=== PATIENT | female | born 1960 | race Caucasian/White ===

== ENCOUNTER 2023-06-27 05:55 | Observation (INO) ==
[~2023-06-27 05:55] MED LIST: Naloxone 0.4 mg VIAL 0.4 mg/ml 1 ml VIAL IV PRN; Ondansetron 4 mg VIAL 2 MG/ML 2 ml VIAL IV PRN; fentaNYL 100 mcg/2 ml 50 MCG/ML VIAL IV PRN
[2023-06-27] MEDS ORDERED: Tranexamic Acid 1 GM/100ML BAG 2,000 MG/200 ML BAG IV ONE (06:16)
[2023-06-27] MEDS ORDERED: ceFAZolin 2 GM in NS PREMIX 2 GM/100 ML BAG IVPB ONE (06:17)
[2023-06-27 06:41] LABS: Rapid COVID-19 Molecular Undetected (Undetected)
[2023-06-27] MEDS ORDERED: Dexamethasone IV 4 MG/ML VIAL 1 ml VIAL ONE ×2 (06:43→07:05)
[2023-06-27] MEDS ORDERED: Midazolam 2 mg/2 ml VIAL 1 mg/ml 2 ml VIAL (2 mg) ONE (06:43)
[2023-06-27] MEDS ORDERED: ROPIVACAINE 5 MG/ML 30 ML BTL (0.5%) ONE ×2 (06:44→09:42)
[2023-06-27] MEDS ORDERED: Vancomycin 1,000 MG VIAL ONE (07:03)
[2023-06-27] MEDS ORDERED: Propofol 10 MG/ML 20 ML BTL ONE ×2 (07:05→09:40)
[2023-06-27] MEDS ORDERED: fentaNYL 100 mcg/2 ml 50 MCG/ML VIAL ONE (07:05)
[2023-06-27] MEDS ORDERED: Rocuronium 50 mg VIAL 10 mg/ml 5 ml VIAL (50 mg) ONE ×2 (07:05→09:42)
[2023-06-27] MEDS ORDERED: Lidocaine 2% PF 5 ML VIAL ONE (07:05)
[2023-06-27] MEDS ORDERED: Ondansetron 4 mg VIAL 2 MG/ML 2 ml VIAL ONE (07:05)
[2023-06-27] MEDS ORDERED: Phenylephrine 40 mcg/mL 10mL (400mcg) SYRINGE ONE (08:22)
[2023-06-27] MEDS ORDERED: Sevoflurane BOTTLE ONE (10:22)
[2023-06-27] MEDS ORDERED: Magnesium Hydroxide LIQ 30 ML UDC PO PRN (11:58)
[2023-06-27] MEDS ORDERED: Lactulose 30 ml UDC PO PRN (11:58)
[2023-06-27] MEDS ORDERED: Morphine 2 MG/ML SYRINGE IV PRN (11:58)
[2023-06-27] MEDS ORDERED: Ondansetron 4 mg VIAL 2 MG/ML 2 ml VIAL IV PRN (11:58)
[2023-06-27] MEDS ORDERED: Ondansetron ODT 4 mg TAB 4 MG TAB PO PRN (11:58)
[2023-06-27] MEDS ORDERED: Dextrose 50% Syringe 50 ml 25 GM/50 ML SYRINGE IV PUSH PRN (13:20)
[2023-06-27] MEDS: Buffered Lidocaine 1% SYRIN 1 ml INTRADERM ONE (14:53)
[2023-06-27] MEDS: Lactated Ringers 1000 ml BAG 1,000 ML IV SCH ×2 (14:53→15:00)
[2023-06-27 18:07] LABS: Glucose Confirmatory 415 mg/dL (70-100)
[2023-06-27] MEDS: ceFAZolin 1 GM ADVAN 1 GM in NS 0.9% 50 ML 50 ML IVPB SCH (18:07)
[2023-06-27] MEDS: Magnesium Hydroxide LIQ 30 ML UDC PO SCH (21:59)
[2023-06-28 05:50] LABS: Hematocrit 32.9 % (35-45); Hemoglobin 11.2 g/dL (11.5-14.3); Mean Platelet Volume 8.3 fL (7.5-11.2); Platelet Count 235 10^3/uL (150-450)
[2023-06-28 06:16] LABS: Calcium 9.3 mg/dL (8.6-10.3); Creatinine, Serum 0.59 mg/dL (0.51-0.95); Potassium 3.9 mmol/L (3.5-5.0); eGFR CKD-EPI 100.6 (>60)
[2023-06-28] MEDS: Vitamin THERAPEUTIC TAB PO SCH (08:20)
[2023-06-28 10:48] VITALS: BP 108/60
== END 2023-06-28 13:18 | disposition home or self-care (01) ==
LOC: SSU 05:55 → OR 05:55 → EDSTATUS 07:30
PROVIDERS: ADMIT Orthopaedic Surgery; ATTEND Orthopaedic Surgery